=== PATIENT | male | born 1990 | race African-American/Black ===

== ENCOUNTER 2020-11-14 19:28 | Emergency (ER) | payer SELFPAY ==
[~2020-11-14] VITALS: Ht 170.2 cm; Wt 136.1 kg
[2020-11-14] MEDS ORDERED: HYDROCODONE/APAP 10-325 MG TABLET PO ONE (19:45)
[2020-11-14] MEDS ORDERED: ONDANSETRON ODT 4 MG TAB.RAPDIS SL ONE (19:45)
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
--- NOTE | 2020-11-14 19:49 | NUR ---
[facility], SERIAL # [id number] AND SERIAL # [id number] AT BEDSIDE TO INTERVIEW PT, BUT PATIENT REFUSED INTERVIEW.
--- NOTE | 2020-11-14 19:50 | NUR ---
[facility] came to intervie patient but patient refiused to be interviewed.
[2020-11-14] MEDS ORDERED: HYDROCODONE/APAP 10-325 MG TABLET ONE (19:54)
[2020-11-14] MEDS ORDERED: ONDANSETRON ODT 4 MG TAB.RAPDIS ONE (19:54)
--- NOTE | 2020-11-14 20:07 | NUR ---
Patient taken to CT via transport.
--- NOTE | 2020-11-14 20:10 | NUR ---
Patient back from CT
--- NOTE | 2020-11-14 20:11 | NUR ---
Unable to do CT scan as patient cannot lie still. MD aware and order X-ray of neck.
--- NOTE | 2020-11-14 20:24 | NUR ---
Back to room from X-ray.
--- NOTE | 2020-11-14 20:26 | NUR ---
Patient requested for some water to drink and provided.
[2020-11-14] MEDS ORDERED: HALOPERIDOL LACTATE 5 MG/1 ML VIAL ONE (21:00)
[2020-11-14] MEDS ORDERED: HALOPERIDOL LACTATE 5 MG/1 ML VIAL IM ONE (21:00)
[2020-11-14] MEDS ORDERED: OLAN5TAB3 PO (21:03)
[2020-11-14] MEDS ORDERED: HYDR-4209 PO (21:03)
--- NOTE | 2020-11-14 21:11 | NUR ---
Patient discharged to home in stable condition. Written and verbal after care instructions given. Patient verbalizes understanding of instructions. Stressed follow up or return to ER for worsening s/s. All belongings with patient.
[2020-11-14 21:12] VITALS: BP 140/90
--- NOTE | 2020-11-14 21:12 | NUR ---
Patient given written and verbal discharge instructions. Patient verbalizes understanding of instructions. Patient is ambulatory with steady gait. Refuses offer of [facility] placement. Patient given list of available shelters in surrounding area.
== END 2020-11-14 21:13 | disposition home or self-care (01) ==
LOC: ER 20:00
DX: M54.2 Cervicalgia (principal); Z59.0 Homelessness; F20.0 Paranoid schizophrenia; F31.9 Bipolar disorder, unspecified; F17.210 Nicotine dependence, cigarettes, uncomplicated
CPT/HCPCS: A4663; J1630; Q0162